=== PATIENT | female | born 1930 | race African-American/Black ===

== ENCOUNTER 2018-03-22 08:43 | Emergency (ER) | payer MEDICARE ==
[~2018-03-22 08:43] MED LIST: ASPI1TAB57 PO; CHLOR50 PO; CHOL1CHW5 CHEW; CYCL10TA PO; FISH1000 PO; HYDR-3583 PO; LABE300T PO; LORA-392 PO; NIFE1TAB PO; PERI8.6T PO; ZOCO80TA PO
[2018-03-22 09:01] VITALS: BP 158/90; PULSE 73; RESP 17; TEMP 99.1; O2SAT 97
--- NOTE | 2018-03-22 09:22 | PD ---
HPI . Decreased hearing Chief Complaint: ENT Complaint Time Seen by Provider: 09:12 Travel History International Travel<30 days: No Contact w/Intl Traveler<30days: No Traveled to known affect area: No History of Present Illness HPI Patient presents along with her family with a chief complaint of decreased hearing. This has been an ongoing problem. They state that they just want to make sure that her ears do not need to be flushed out. PFSH Past Medical History Arthritis: Yes Asthma: No Autoimmune Disease: No Blood Disorders: No Anxiety: Yes Heart Rhythm Problems: Yes Cancer: No Cardiac Catheterization: Yes (stent placed) Cardiovascular Problems: Yes High Cholesterol: Yes Chest Pain: Yes Congestive Heart Failure: Yes COPD: No Cerebrovascular Accident: Yes (x2) Coronary Artery Disease: Yes Diabetes: No Diminished Hearing: Yes ([place]) Endocrine: No GERD: No Glaucoma: No Genitourinary: Yes (kidney function one kidney poorly ) Headaches: No Hepatitis: No Hiatal Hernia: No Hypertension: Yes Immune Disorder: No Kidney Stones: No Musculoskeletal: Yes (4 HIPS) Neurologic: Yes (BRAIN ANEURYSM) Psychiatric: No Reproductive: No Respiratory: No Myocardial Infarction: Yes Renal Failure: No Seizures: No Sleep Apnea: No Thyroid Disease: No Ulcer: No PNEUMOCCOCAL Vaccine (Year): 2 ?: Not Menopausal: Yes Tubal Ligation: Yes Past Surgical History Abdominal Surgery: Yes AICD: No Cardiac Surgery: Yes (carotid endardectomy) Coronary Artery Bypass Graft: Yes Coronary Stent: Yes Ear Surgery: No Endocrine Surgery: No Eye Surgery: No Genitourinary Surgery: No Gynecologic Surgery: Yes Hysterectomy: Yes Joint Replacement: Yes (bilateral hips x2 each) Oral Surgery: No Pacemaker: No Thoracic Surgery: No Other Surgery: Yes (herniated disk in back) Social History Alcohol Use: No Tobacco Use: No Substance Use: No Allergies-Medications (Allergen,Severity, Reaction): Coded Allergies: enalaprilat (Unverified Allergy, Severe, Hives, 10/17/17) fentanyl (Unverified Allergy, Severe, Hives, 10/17/17) midazolam (Unverified Allergy, Severe, Hives, 10/17/17) niacin (Unverified Adverse Reaction, Severe, Dizziness, 10/17/17) Uncoded Allergies: niaspan (Adverse Reaction, Severe, dizziness, 03/02/10) Reported Meds & Prescriptions Reported Meds & Active Scripts Active Hydrocodone-Acetaminophen 10-325 mg Tab 1 Tab PO Q6H PRN Labetalol (Labetalol HCl) 300 Mg Tab 300 Mg PO BID Ativan (Lorazepam) 0.5 Mg Tab 0.5 Mg PO BID PRN Nifedipine ER 24 HR (Nifedipine) 90 Mg Tab 90 Mg PO DAILY Chlorthalidone 50 Mg Tab 50 Mg PO DAILY Zocor (Simvastatin) 80 Mg Tab 80 Mg PO HS Reported Fish Oil ([place]-3 Fatty Acids) 1,000 Mg Cap 1 Cap PO DAILY Yissel-Colace (Sennosides-Docusate Sodium) 8.6-50 Mg Tab 1 Tab PO BID PRN Flexeril (Cyclobenzaprine HCl) 10 Mg Tab 10 Mg PO TID Vitamin D3 (Cholecalciferol) 2,000 Unit Chew 2,000 Units CHEW DAILY Aspirin 81 (Aspirin) 81 Mg Tabdr 81 Mg PO DAILY Review of Systems Except as stated in HPI: all other systems reviewed are Neg Physical Exam Narrative GENERAL: Awake and alert and in no acute distress. SKIN: Warm and dry. Normal color and turgor. HEAD: Normocephalic/atraumatic. EYES: Pupils are equal. Extraocular movements are intact. ENT: Both EACs are clear of cerumen. TMs are both shiny wong with good light reflexes. NECK: Normal range of motion. Supple. CARDIOVASCULAR: Regular rate and rhythm. RESPIRATORY: Nonlabored respirations. Normal sats. MUSCULOSKELETAL: Atraumatic. Normal muscle tone. NEUROLOGICAL: A and O 3. Nonfocal. PSYCHIATRIC: Appropriate mood and affect. Data Data Last Documented VS Vital Signs Date Time Temp Pulse Resp B/P (MAP) Pulse Ox O2 Delivery O2 Flow Rate FiO2 03/22/18 09:01 99.1 73 17 158/90 (112) 97 Orders Orders Ed Discharge Order (03/22/18 09:19) [facility] Medical Decision Making Medical Screen Exam Complete: Yes Emergency Medical Condition: Yes Differential Diagnosis Differential diagnosis of decreased hearing includes but is not limited to cerumen impacted EACs, otitis media, otitis externa, hearing loss Narrative Course Patient presents for the evaluation of decreased hearing. Her family reports that they just wanted to make sure that she did not need to have her ears washed out. Her EACs are clear. Diagnosis Primary Impression: Decreased hearing Qualified Codes: H91.93 - Unspecified hearing loss, bilateral Patient Instructions: General Instructions Departure Forms: Tests/Procedures Additional Instructions: Follow-up with an biomedical specialist Disposition: 01 DISCHARGE HOME Condition: Stable Malissa Alfaro MD Mar 22, 2018 09:22
== END 2018-03-22 09:40 | disposition home or self-care (01) ==
LOC: NEPE 08:43
DX: H91.93 Unspecified hearing loss, bilateral (principal); I10 Essential (primary) hypertension; I25.10 Atherosclerotic heart disease of native coronary artery without angina pectoris; E78.00 Pure hypercholesterolemia, unspecified; I25.2 Old myocardial infarction; Z87.39 Personal history of other diseases of the musculoskeletal system and connective tissue; F41.9 Anxiety disorder, unspecified; Z86.79 Personal history of other diseases of the circulatory system; Z87.448 Personal history of other diseases of urinary system; Z86.69 Personal history of other diseases of the nervous system and sense organs
CPT/HCPCS: 99281